=== PATIENT | female | born 1950 | race Hispanic/Latino ===

== ENCOUNTER 2017-03-20 15:30 | Outpatient (CLI) | payer BC ==
--- NOTE | 2017-03-20 16:26 | Mammography Report ---
BILATERAL DIGITAL SCREENING MAMMOGRAM with CAD : 03/20/17 15:30:00 CLINICAL: Routine screening.History of a left surgical benign biopsy in 1988. COMPARISON:06/28/15 FINDINGS: The breasts are heterogeneously dense, which may obscure small masses.The fibroglandular pattern is stable with bilateral asymmetries. Minimal left upper outer postsurgical scar. No mass, architectural distortion or suspicious calcifications. IMPRESSION: No mammographic evidence of malignancy. BI-RADS CATEGORY: 2 -- Benign RECOMMENDATION: Routine mammographic screening in one year. COMMENT: Patient follow-up letters are generated by our [employer] application.
== END 2017-03-20 15:31 | disposition home or self-care (01) ==
LOC: SPVWC 15:30
PROVIDERS: ATTEND Family Medicine
DX: Z12.31 Encounter for screening mammogram for malignant neoplasm of breast (principal)
CPT/HCPCS: 77067; G0202

== ENCOUNTER 2020-01-17 10:31 | Outpatient (CLI) | payer MEDICARE ==
--- NOTE | 2020-01-17 16:03 | Mammography Report ---
DIGITAL SCREENING MAMMOGRAM WITH CAD, 01/17/2020 INDICATION: Routine screening mammography. TECHNIQUE: Digital bilateral 2D mammography was obtained in the craniocaudal and mediolateral obliq ue projections. This examination was interpreted with the benefit of Computer-Aided Detection analysi s. COMPARISON: 04/26/2018, 03/20/2017 FINDINGS: Breast Density: There are scattered areas of fibroglandular density. There is no evidence of dominant mass, suspicious calcifications or architectural distortion in eithe r breast. IMPRESSION: Follow up recommendation: Routine yearly BI-RADS Category 1: Negative. A "normal" or negative report should not discourage follow up or biopsy of a clinically significant f inding. A written summary of these findings will be mailed to the patient. The patient will be entered into a mammography reporting system which will generate a reminder letter for the patient's next appointmen t at the appropriate interval. The [employer] recommends yearly mammograms starting at age 40 and continuing as l maura as a woman is in good health. Breast MRI is recommended for women with an approximate 20-25% or greater lifetime risk of breast cancer, including women with a strong family history of breast or ova rocio cancer or who have been treated for Hodgkin's disease. Signer Name: Gabriel Durant MD Signed: 01/17/2020 3:59 PM Workstation Name: [id number]
== END 2020-01-17 10:32 | disposition home or self-care (01) ==
LOC: SPVWC 10:31
PROVIDERS: ATTEND Family Medicine
DX: Z12.31 Encounter for screening mammogram for malignant neoplasm of breast (principal); N64.89 Other specified disorders of breast
CPT/HCPCS: 77067

== ENCOUNTER 2020-06-07 14:50 | Outpatient (CLI) | payer MEDICARE ==
--- NOTE | 2020-06-08 07:52 | Mammography Report ---
DEXA BONE DENSITY SCAN INDICATION: POSTMENOPAUSAL STATE. COMPARISON: 01/04/2009 LUMBAR SPINE (L1-L4): Bone mineral density (BMD) is 1.077 g/cm2. T-score is 0.3 (standard deviations of Young Adult mean). Z-score is 2.4 (standard deviations of Age Matched mean). There has been a 15% increase in bone mineral density in this region since 2008. LEFT FEMORAL NECK: Bone mineral density (BMD) is 0.678 g/cm2. T-score is -1.5 (standard deviations of Young Adult mean). Z-score is 0.3 (standard deviations of Age Matched mean). There has been an 19 % decrease in bone mineral density in this region since 2008. IMPRESSION: 1. WHO Classification: Osteopenia. Fracture Risk: Increased. Signer Name: Rosendo Garcia MD Signed: 06/08/2020 7:48 AM Workstation Name: [id number]
== END 2020-06-07 14:51 | disposition home or self-care (01) ==
LOC: SPVWC 14:50
PROVIDERS: ATTEND Family Medicine
DX: Z78.0 Asymptomatic menopausal state (principal); Z13.820 Encounter for screening for osteoporosis
CPT/HCPCS: 77080

== ENCOUNTER 2021-05-27 09:17 | Outpatient (CLI) | payer MEDICARE ==
--- NOTE | 2021-05-27 15:14 | Mammography Report ---
DIGITAL SCREENING MAMMOGRAM WITH CAD, 05/27/2021 CLINICAL INFORMATION / INDICATION: Routine screening mammography. TECHNIQUE: Digital bilateral 2D mammography was obtained in the craniocaudal and mediolateral obliqu e projections. This examination was interpreted with the benefit of Computer-Aided Detection analysis . COMPARISON: 01/17/2020, 04/26/2018 FINDINGS: Breast Density: There are scattered areas of fibroglandular density. No dominant mass, suspicious calcifications, or architectural distortion in either breast. Anterior upper outer left breast scarring is unchanged. No other significant interval changes. IMPRESSION: No mammographic evidence of malignancy. Follow up recommendation: Routine yearly BI-RADS Category 2: Benign. A "normal" or negative report should not discourage follow up or biopsy of a clinically significant f inding. A written summary of these findings will be mailed to the patient. The patient will be entered into a mammography reporting system which will generate a reminder letter for the patient's next appointmen t at the appropriate interval. The [employer] recommends yearly mammograms starting at age 40 and continuing as l maura as a woman is in good health. Breast MRI is recommended for women with an approximate 20-25% or greater lifetime risk of breast cancer, including women with a strong family history of breast or ova rocio cancer or who have been treated for Hodgkin's disease. Signer Name: Gabriel Durant MD Signed: 05/27/2021 3:09 PM Workstation Name: [email or web address]
== END 2021-05-27 09:18 | disposition home or self-care (01) ==
LOC: SPVWC 09:17
PROVIDERS: ATTEND Family Medicine
DX: Z12.31 Encounter for screening mammogram for malignant neoplasm of breast (principal); N64.89 Other specified disorders of breast
CPT/HCPCS: 77067